=== PATIENT | female | born 1990 | race Caucasian/White ===

== ENCOUNTER 2025-03-10 15:57 | Emergency (ER) | payer SELFPAY ==
[2025-03-10 16:52] LABS: Influenza A Ag Negative; Influenza B Ag Negative; SARS-CoV-2 Antigen Rapid Res Negative (Negative)
[2025-03-10] MEDS ORDERED: IPRATROPIUM BROM 0.5MG/2.5ML ONE (17:50)
[2025-03-10] MEDS ORDERED: ALBUTEROL 2.5 MG/3 ML NEB SOL ONE (17:50)
[2025-03-10] MEDS ORDERED: dexAMETHasone 10 MG/ML VIAL ONE (17:51)
--- NOTE | 2025-03-10 17:57 | RAD REPORT ---
EXAMINATION: ONE VIEW CHEST XR CLINICAL INDICATION: Female, 35 years old.,Cough;Congestion TECHNIQUE: Frontal chest projection is submitted. Examination is limited by patient positioning and t echnique. COMPARISON: No prior exam. FINDINGS: The lungs are well inflated and clear. No pneumothorax or sizable effusion. The heart is normal in s ize. Mediastinal contours are unremarkable. IMPRESSION: No acute intrathoracic abnormalities.
--- NOTE | 2025-03-10 18:37 | EDPHYS ---
Physician Documentation [facility] Name: Kassy Gonzalez Age: 35 yrs Sex: Female : 1990 Arrival Date: 03/10/2025 Time: 15:57 Bed 23 Private MD: ED Physician Jcarlos Kohler HPI: 03/10 16:11 This 35 yrs old Female presents to ER via Unassigned with complaints of Chest Pain, kb Painful Cough. 16:11 Pt is a 35 year old female who presents for cough for 2 weeks; fever, nasal congestion kb and ears feel clogged for 2 days. Throat feels raw from coughing. Reports nausea, denies vomiting and diarrhea. . Historical: - Allergies: 16:25 tramadol; iw 16:25 Toradol; iw 16:25 Latex, Natural Rubber; iw - PSHx: 16:25 hysterectomy; right wrist/elbow; iw - Immunization history:: Adult Immunizations up to date. - Infectious Disease History:: Denies. - Social history:: Smoking status: Patient denies any tobacco usage or history of. ROS: 16:11 Constitutional: As per HPI kb Exam: 16:11 Constitutional: This is a well developed, well nourished patient who is awake, alert, kb and in no acute distress. Head/Face: Normocephalic, atraumatic. ENT: Moist Mucous membranes Cardiovascular: Regular rate Respiratory: Respirations even and unlabored. No increased work of breathing. Talking in full sentences Abdomen/GI: Soft, non-tender. No distention Skin: Warm, dry with normal turgor. Normal color. MS/ Extremity: Pulses equal, no cyanosis. Neurovascular intact. Full, normal range of motion. Neuro: Awake and alert, GCS 15, oriented to person, place, time, and situation. Vital Signs: 16:24 BP 112 / 80; Pulse 105; Resp 18; Temp 97.1; Pulse Ox 96% on R/A; Weight 79.38 kg; iw Height 5 ft. 1 in. ; 16:24 Body Mass Index 33.07 (79.38 kg, 154.94 cm) iw MDM: 16:03 Medical Screening Exam initiated kb 16:12 Data reviewed: vital signs, nurses notes. kb 18:36 Differential diagnosis: covid, flu, pneumonia, bronchitis. Counseling: I had a detailed kb discussion with the patient and/or guardian regarding the historical points, exam findings, and any diagnostic results supporting the discharge/admit diagnosis, lab results, radiology results, the need for outpatient follow up, a family practitioner, to return to the emergency department if symptoms worsen or persist or if there are any questions or concerns that arise at home. 18:38 ED course: Symptoms started to improve and then got worse. Will prescribe antibiotics. kb 03/10 16:12 Order name: COVID-19 Ag + Flu A+B Ag; Complete Time: 16:55 kb 03/10 16:12 Order name: Group A Streptococcus Rapid; Complete Time: 16:41 kb 03/10 16:43 Order name: Throat Culture EDMS 03/10 16:12 Order name: Chest Single View XRAY; Complete Time: 17:59 kb Administered Medications: 17:55 Drug: Albuterol Inhalation 2.5 mg Inhalation once Route: Inhalation; iw 17:55 Drug: Ipratropium Inhalation Aerosol 0.5 mg Inhalation once Route: Inhalation; iw 17:55 Drug: Dexamethasone IM 10 mg IM once Route: IM; Site: right deltoid; iw Disposition: 21:48 I was immediately available on-site in the Emergency Department for consultation in the ms3 care of the patient. Disposition Summary: 03/10/25 18:37 Discharge Ordered Notes: Location: Home kb Condition: Stable kb Diagnosis - Cough kb - Fever, unspecified kb Followup: kb - With: Emergency Department - When: As needed - Reason: Worsening of condition Followup: kb - With: Private Physician - When: 2 - 3 days - Reason: Recheck today's complaints, Continuance of care, Re-evaluation by your physician Discharge Instructions: - Discharge Summary Sheet kb - Acute Bronchitis, Adult, [id number] kb Forms: - Work release form kb - Medication Reconciliation Form kb - Antibiotic Education kb - Prescription Opioid Use kb - Patient Portal Instructions kb - Leadership Thank You Letter kb Prescriptions: - Augmentin 875-125 mg Oral Tablet - take 1 tablet ORAL route every 12 hours for 10 days; 20 tablet; Refills: 0, kb Product Selection Permitted - Prednisone 20 mg Oral Tablet - take 1 tablet ORAL route once daily for 5 days; 5 tablet; Refills: 0, Product kb Selection Permitted - Albuterol Sulfate 2.5 mg /3 mL (0.083 %) Inhalation Solution for Nebulization - inhale 1 unit NEBULIZATION route every 4-6 hours As needed; 1 Unspecified; kb Refills: 0, Product Selection Permitted Signatures: Dispatcher [employer] Eulalia Ang FNP-C FNP-Ckb Williams, Irene, RN RN iw Tom Sauer RN RN ll1 Jcarlos Kohler DO DO ms3
--- NOTE | 2025-03-10 18:37 | ER ---
Nurse's Notes [facility] Name: Kassy Gonzalez Age: 35 yrs Sex: Female : 1990 Arrival Date: 03/10/2025 Time: 15:57 Bed 23 Private MD: Diagnosis: Cough;Fever, unspecified Presentation: 03/10 16:21 Acuity: FELICITA 4 iw 16:24 Chief complaint: Patient states: cough X 2 weeks, fever X 2 days, sore throat, nasal iw congestion, ears feel clogged. Coronavirus screen: Client presents with at least one sign or symptom that may indicate coronavirus-19. Ebola Screen: No symptoms or risks identified at this time. Initial Sepsis Screen: Does the patient meet any 2 criteria? No. Patient's initial sepsis screen is negative. Does the patient have a suspected source of infection? No. Patient's initial sepsis screen is negative. Risk Assessment: Do you want to hurt yourself or someone else? Patient reports no desire to harm self or others. 16:24 Method Of Arrival: Ambulatory iw Historical: - Allergies: 16:25 tramadol; iw 16:25 Toradol; iw 16:25 Latex, Natural Rubber; iw - PSHx: 16:25 hysterectomy; right wrist/elbow; iw - Immunization history:: Adult Immunizations up to date. - Infectious Disease History:: Denies. - Social history:: Smoking status: Patient denies any tobacco usage or history of. Screenin:57 [facility] ED Fall Risk Assessment (Adult) History of falling in the last 3 months, iw including since admission No falls in past 3 months (0 pts) Confusion or Disorientation No (0 pts) Intoxicated or Sedated No (0 pts) Impaired Gait No (0 pts) Mobility Assist Device Used No (0 pt) Altered Elimination No (0 pt) Score/Fall Risk Level 0 - 2 = Low Risk Oriented to surroundings, Maintained a safe environment. Abuse screen: Denies threats or abuse. Nutritional screening: No deficits noted. Tuberculosis screening: No symptoms or risk factors identified. Assessment: 17:56 Reassessment: Patient appears in no apparent distress at this time. Patient and/or iw family updated on plan of care and expected duration. Pain level reassessed. Patient is alert, oriented x 3, equal unlabored respirations, skin warm/dry/pink. Vital Signs: 16:24 BP 112 / 80; Pulse 105; Resp 18; Temp 97.1; Pulse Ox 96% on R/A; Weight 79.38 kg; iw Height 5 ft. 1 in. ; 16:24 Body Mass Index 33.07 (79.38 kg, 154.94 cm) ED Course: 15:59 Patient arrived in ED. al6 16:03 [facility] London[facility] kb 16:03 Jcarlos Kohler DO is Attending Physician. kb 16:21 Triage completed. iw 16:26 Arm band placed on. iw 16:27 COVID-19 Ag + Flu A+B Ag Sent. iw 16:27 Group A Streptococcus Rapid Sent. iw 17:23 Chest Single View XRAY In Process Unspecified. EDMS 17:49 Davina Krishna, RN is Primary Nurse. iw 19:03 No provider procedures requiring assistance completed. Patient did not have IV access jl7 during this emergency room visit. Patient maintains SpO2 saturation greater than 95% on room air. Administered Medications: 17:55 Drug: Albuterol Inhalation 2.5 mg Inhalation once Route: Inhalation; iw 17:55 Drug: Ipratropium Inhalation Aerosol 0.5 mg Inhalation once Route: Inhalation; iw 17:55 Drug: Dexamethasone IM 10 mg IM once Route: IM; Site: right deltoid; iw Outcome: 18:37 Discharge ordered by . kb 19:03 Discharged to home ambulatory, jl7 19:03 Condition: stable 19:03 Discharge instructions given to patient, Instructed on discharge instructions, follow up and referral plans. medication usage, Demonstrated understanding of instructions, follow-up care, medications, Prescriptions given X 3, 19:03 Patient left the ED. jl7 Signatures: Dispatcher [employer] EDCA Eulalia Londono FNP-C FNP-Ckb Williams, Irene RN RN iw Jaron Zhou RN RN jl7 Kimmie Escobar al6
[2025-03-10 19:08] VITALS: BP 112/80; TEMP 97.1; O2SAT 96
== END 2025-03-10 19:03 | disposition home or self-care (01) ==
LOC: ER 15:57
DX: R05.9 Cough, unspecified (principal); R50.9 Fever, unspecified; Z11.52 Encounter for screening for COVID-19
CPT/HCPCS: 36415; 71045; 87070; 87428; J1100; J7613; J7644

== ENCOUNTER 2025-07-14 04:16 | Emergency (ER) | payer OTHER ==
--- OUTSIDE RECORDS SUMMARY | 2025-07-14 04:20 | XMS REPORT | Continuity of Care Document ---
Author Name Unknown Address [address] [facility] [place] [address] [facility] [place] Address [address] [facility] [address] [place] [address] Care Team Providers Care Telegraphic Typewriter Installer Name Role Phone Pcp, Patient Does Not Have A Primary Care Physic murphy Bozena Garrett DO Attending Clinician Payers Payer Name Policy Type Policy Number Effective Date Expirati on Date Source Allergies, Adverse Reactions, Alerts Allergy Name Allergy Type Status Severity Reaction(s) Onset Date Inactive Date Treating Clinician Comments Source WHEAT DRUG INGREDI Active High Unknown-Cmnt 05-25 00:00: 00 [facility] Wheat Propensi ty to adverse reaction s Active Unknown - See comments 05-25 00:00: 00 [facility] NO KNOWN ALLERGIE S Drug Class Active [facility] Social History Social Habit Start Date Stop Date Quantity Comments Source [facility] Sex assigned at 1990 00:00:00 1990 00:00:00 [facility] Smoking Status Start Date Stop Date Source Tobacco smoking consumption unknown [facility] Medications Ordered Medication Name Filled Medication Name Start Date Stop Date Current Medication? Ordering Clinician Indication Dosage Frequency Signature (SIG) Comments Components Source ondansetron (ZOFRAN-ODT ) disintegrat ing tablet 4 mg 05-26 02:45: 00 05-26 01:48 :00 No 4mg 4 mg, Oral, ONCE, 1 dose, On Sat05/25/25 at 2145, Routine [facility] hyoscyamine sulfate (LEVSIN/SL) sublingual tablet 0.125 mg 05-26 02:30: 00 05-26 01:48 :00 No .125mg 0.125 mg, Sublingual , ONCE, 1 dose, On Sat05/25/25 at 2130, Routine [facility] dicyclomine (BENTYL) tablet 20 mg 05-26 01:45: 00 05-26 01:48 :00 No 20mg 20 mg, Oral, ONCE, 1 dose, On Sat05/25/25 at 2045, HERACLIO [facility] ondansetron 4 mg disintegrat ing tablet 05-25 00:00: 00 Yes [id number] 4mg Take 1 tablet by mouth every 8 hours as needed for Nausea and Vomiting (N/V). [facility] dicyclomine 20 mg tablet 05-25 00:00: 00 Yes [id number] 20mg Take 1 tablet by mouth every 6 hours as needed for Abdominal pain. [facility] sertraline 100 mg tablet 04-26 00:00: 00 Yes 1mg Dylan Garcia trazodone 150 mg tablet 04-26 00:00: 00 Yes 1mg Dylan Garcia hydroxyzine HCl 10 mg tablet 04-26 00:00: 00 Yes 1mg Dylan Garcia prazosin 1 mg capsule 04-26 00:00: 00 Yes 1mg Dylan Garcia Vital Signs Vital Name Observation Time Observation Value Comments S ource Heart rate 2025-05-26 03:29:00 95 /min [facility] Body temperature 2025-05-26 03:29:00 37.06 Karen [facility] Respiratory rate 2025-05-26 03:29:00 12 /min [facility] Oxygen saturation in Arterial blood by Pulse oximetry 2025-05-26 03:29:00 97 /min [facility] Systolic blood pressure 2025-05-26 03:00:00 120 mm[Hg] [facility] Diastolic blood pressure 2025-05-26 03:00:00 86 mm[Hg] [facility] Body height 2025-05-26 01:33:00 157.5 cm [facility] Body weight 2025-05-26 01:33:00 92.534 kg [facility] BMI 2025-05-26 01:33:00 37.31 kg/m2 [facility] Height Measured 2025-04-29 14:03:00 62.60 inches Dylan F Jose Body Temperature 2025-04-29 14:03:00 97.80 degrees Dylan F Jose Heart Rate 2025-04-29 14:03:00 85.00 /min Audrey en F Jose Respiratory Rate 2025-04-29 14:03:00 Dylan F Jose BP Systolic 2025-04-29 14:03:00 108 mm[Hg] Step hen F Jose BP Diastolic 2025-04-29 14:03:00 76 mm[Hg] Oral phen F Jose Weight Measured 2025-04-29 14:03:00 201.60 pounds Dylan F Jose BP Systolic 2025-04-27 10:25:00 106 mm[Hg] Step hen F Jose BP Diastolic 2025-04-27 10:25:00 73 mm[Hg] Oral phen F Jose Weight Measured 2025-04-27 10:25:00 204.40 pounds Dylan F Jose Height Measured 2025-04-27 10:25:00 62.60 inches Dylan F Jose Body Temperature 2025-04-27 10:25:00 97.80 degrees Dylan F Jose Heart Rate 2025-04-27 10:25:00 81.00 /min Audrey en F Jose Respiratory Rate 2025-04-27 10:25:00 Dylan F Jose BP Systolic 2025-04-26 10:43:00 126 mm[Hg] Step hen F Jose BP Diastolic 2025-04-26 10:43:00 58 mm[Hg] Oral phen F Jose Weight Measured 2025-04-26 10:43:00 204.60 pounds Dylan F Jose Height Measured 2025-04-26 10:43:00 62.60 inches Dylan F Jose Body Temperature 2025-04-26 10:43:00 97.50 degrees Dylan F Jose Heart Rate 2025-04-26 10:43:00 59.00 /min Audrey Garcia Respiratory Rate 2025-04-26 10:43:00 Dylan Garcia Encounters Start Date/Time End Date/Time Encounter Type Admission Type Attending [facility] Facility Care Department Encounter ID Source 2025-05-25 20:38:00 2025-05-25 22:45:00 Emergency X Bozena Garrett [facility] [id number] [facility] 2025-05-24 09:10:22 2025-05-24 09:10:22 Outpatient [facility] [id number] Dylan Garcia 2025-04-29 13:49:28 2025-04-29 13:49:28 Outpatient [facility] [id number] Dylan Garcia 2025-04-29 00:00:00 2025-04-29 00:00:00 Outpatient Visit [facility] [id number] Dylan Garcia 2025-04-27 10:24:54 2025-04-27 10:24:54 Outpatient [facility] [id number] Dylan Garcia 2025-04-26 11:45:57 2025-04-26 11:45:57 Outpatient [facility] [id number] Dylan Garcia 2025-04-20 10:31:31 2025-04-20 10:31:31 Outpatient [facility] [id number] Dylan Garcia Results Test Description Test Time Test Comments Results Result Co mments Source Dylan GarciaCOMPREHENSIVE METABOLIC [id number] 00:00:00* Test Item Value Reference Range Interpretation Comme nts GLUCOSE (test code = 2345-7) 90 mg/dL UREA NITROGEN (BUN) (test code = 3094-0) 11 mg/dL CREATININE (test code = 2160-0) 0.61 mg/dL EGFR (test code = 32579-7) 119 mL/min/1.73m2 BUN/CREATININE RATIO (test code = 3097-3) SEE NOTE: (calc) SODIUM (test code = 2951-2) 140 mmol/L POTASSIUM (test code = 2823-3) 5.0 mmol/L CHLORIDE (test code = 2075-0) 101 mmol/L CARBON DIOXIDE (test code = 2027-9) 24 mmol/L CALCIUM (test code = 71009-1) 9.6 mg/dL PROTEIN, TOTAL (test code = 2885-2) 7.6 g/dL ALBUMIN (test code = 1751-7) 4.5 g/dL GLOBULIN (test code = 16567-3) 3.1 g/dL(calc) ALBUMIN/GLOBULIN RATIO (test code = 1759-0) 1.5 (calc) BILIRUBIN, TOTAL (test code = 1975-2) 0.4 mg/dL ALKALINE PHOSPHATASE (test code = 6768-6) 98 U/L AST (test code = 1920-8) 19 U/L ALT (test code = 1742-6) 16 U/L Dylan GarciaHEMOGLOBIN [id number] 00:00:00* Test Item Value Reference Range Interpretation Comme [facility] HEMOGLOBIN A1c (test code = 4548-4) 5.6 % Dylan Noonan JoseLIPID [id number] 00:00:00* Test Item Value Reference Range Interpretation Comme nts CHOLESTEROL, TOTAL (test cod e = 2093-3) 193 mg/dL HDL CHOLESTEROL (test code = 2085-9) 35 mg/dL TRIGLYCERIDES (test code = 2571-8) 239 mg/dL LDL-CHOLESTEROL (test code = 33986-2) 122 mg/dL(calc) CHOL/HDLC RATIO (test code = 9830-1) 5.5 (calc) NON HDL CHOLESTEROL (test code = 84370-6) 158 mg/dL(calc) Dylan Noonan [id number] 00:00:00* Test Item Value Reference Range Interpretation Comme nts TSH (test code = 3016-3) 1.55 mIU/L Dylan Saran Jose Notes Date/Time Note Provider Source 2025-05-25 22:30:41 Pt given printed and verbal discharge instructions regarding generalized abdominal pain. Prescriptions provided x2 Pt verbalized understanding of instructions, pt awake alert oriented, resp reg unlabored, skin w/d, color appropriate for race, moves all ext well,pt encouraged to follow up with pcp. Advised to seek medical attention for new/prolonged/worsening of symptoms. No adverse reaction to meds given in ER noted upon discharge Awake, alert oriented, resp reg unlabored, skin w/d, pt leaving amb with steady gait, in no apparent distress, Alyssa Aguilar RN [facility] 2025-05-25 20:34:47 PT to triage with CC of abd pain/ swelling SP ingesting wheat by accident. Abdomen noticeably distended with mild redness noted to abd. PT states this normally happen when she ingests wheat. No home RX [employer]. Airway clear with no reports of difficulty breathing. Dr. Garrett notified and PT seen in triage. [facility] 2025-05-25 20:21:[address] [facility] Emergency Department Note Patient Name: Kassy Epstein Date of : 1990 35 year old female Treatment Room: OR5 Primary Care Physician: No primary care provider on file. Patient Escorted by: Friend [6] Mode of Arrival: Personal means [1] EMS Treatment Prior to ED Arrival: [employer] treatment: None Travel and Exposure Screening: Symptoms Does patient have any of these symptoms?: (not recorded) Exposure Screening Has patient had contact with someone with a communicable disease in the last month?: (not recorded) Diseases exposed to:: (not recorded) Is Patient ?: (not recorded) Exposure Date: (not recorded) Chief Complaint: Chief Complaint Patient presents with Allergic reaction History of Present Illness: History of Present Illness The patient presents for evaluation for abdominal discomfort as well as diarrhea that occurred after she accidentally consumed gluten. She does have a history of celiac disease and is supposed to have a gluten-free diet. [facility] is [facility] and reports somebody cooked food today without realizing there was wheat in the food. No shortness of breath. No throat swelling or tightness. No medications taken prior to arrival. She complains of abdominal swelling and cramping as well as diarrhea. Here for evaluation. Past Medical History/Immunizations: History reviewed. No pertinent past medical history. Tetanus received in last 5 years: Unknown Allergies: Allergies Allergen Reactions Wheat Unknown - See comments Past Social History: Substance & Sexual Activity No substance use or sexual activity history on file. Past Surgical History: History reviewed. No pertinent surgical history. Review of Systems: Review of Systems Constitutional: Negative for chills and fever. Respiratory: Negative for cough and shortness of breath. Cardiovascular: Negative for chest pain. Gastrointestinal: Positive for abdominal distention, abdominal pain and diarrhea. Negative for nausea and vomiting. Genitourinary: Negative for dysuria. Musculoskeletal: Negative for arthralgias, neck pain and neck stiffness. Skin: Negative for wound. Neurological: Negative for dizziness. Psychiatric/Behavioral: Negative for agitation. Endocrine: Negative for goiter. Physical Exam: Physical Exam ED Triage Vitals Weight 05/25/252032 92.5 kg (204 lb) Actual or estimated -- Height 05/25/252032 1.575 m (5' 2") BP 05/25/252032 (!) 148/110 Pulse 05/25/252032 116 Resp 05/25/252032 18 Temp 05/25/252032 37.1 ?C (98.8 ?F) Temp src -- SpO2 05/25/25 2100 98 % Measured on -- Physical Exam Vitals and nursing note reviewed. Constitutional: Appearance: Normal appearance. She is obese. HENT: Head: Normocephalic and atraumatic. Mouth/Throat: Mouth: Mucous membranes are moist. Pharynx: Oropharynx is clear. No oropharyngeal exudate or posterior oropharyngeal erythema. Comments: Airway is patent. There is no swelling or erythema of her posterior pharynx. She is able to control her secretions without difficulty and is speaking in full and complete sentences without difficulty. Cardiovascular: Rate and Rhythm: Normal rate. Pulses: Normal pulses. Pulmonary: Effort: Pulmonary effort is normal. No respiratory distress. Breath sounds: No stridor. No wheezing or rhonchi. Abdominal: General: There is no distension. Palpations: Abdomen is soft. There is no mass. Tenderness: There is no abdominal tenderness. There is no guarding or rebound. Hernia: No hernia is present. Musculoskeletal: General: Normal range of motion. Cervical back: Normal range of motion and neck supple. Skin: General: Skin is warm. Neurological: Mental Status: She is alert. Radiology: No orders to display Lab Results: Lab Results - No data to display EKG: If EKG completed, see Procedure Note. Orders and Treatments: No orders of the defined types were placed in this encounter. Orders Placed This Encounter Medications hyoscyamine sulfate (LEVSIN/SL) sublingual tablet 0.125 mg dicyclomine (BENTYL) tablet 20 mg ondansetron (ZOFRAN-ODT) disintegrating tablet 4 mg ondansetron 4 mg disintegrating tablet dicyclomine 20 mg tablet First Provider Eval: ED Events Date/Time Event User Comments 05/25/252023 Medical Screening Begins BOZENA GARRETT DO -- 05/25/252023 First Provider Evaluation BOZENA GARRETT DO -- ED COURSE Diagnosis/Impression as of 05/25/25 2223 Generalized abdominal pain Results Procedures: Procedures MDM: Assessment & Plan Medical Decision Making The patient presents for evaluation for abdominal discomfort as well as diarrhea that occurred after she accidentally consumed gluten. She does have a history of celiac disease and is supposed to have a gluten-free diet. She is currently staying at [facility] and reports somebody cooked food today without realizing there was wheat in the food. No shortness of breath. No throat swelling or tightness. No medications taken prior to arrival. She complains of abdominal swelling and cramping as well as diarrhea. Vital signs are stable in the ER. The patient is overweight. Her oropharynx and is a clear bilaterally. Her abdomen is soft and nontender on examination. Will give the patient medication to make her more comfortable. Anticipate discharge home later. 2222 - The patient is doing well here in the ER. Her abdominal discomfort has resolved with the medications given today. She remained stable here in the ER and is okay for discharge home with PCP follow-up in 1 week. Problems Addressed: Generalized abdominal pain: acute illness or injury Risk OTC drugs. Prescription drug management. Flowsheet Documentation: Scoring Tools: No data recorded Disposition/Condition: ED Disposition ED Disposition Discharge Condition Stable Comment -- Discharge Medications: Patient's Medications START taking these medications DICYCLOMINE 20 MG TABLET Take 1 tablet by mouth every 6 hours as needed for Abdominal pain. ONDANSETRON 4 MG DISINTEGRATING TABLET Take 1 tablet by mouth every 8 hours as needed for Nausea and Vomiting (N/V). CONTINUE taking these medications which have NOT CHANGED No medications on file START taking Modified Medications as Prescribed No medications on file STOP taking these medications No medications on file Follow-up: Electronically signed by: Bozena Garrett DO 05/25/[address] [facility]
[2025-07-14] MEDS ORDERED: AZITHROMYCIN 250 MG TAB ONE (04:49)
[2025-07-14] MEDS ORDERED: ACETAMINOPHEN 500 MG TAB ONE (04:49)
[2025-07-14] MEDS ORDERED: GUAIFENESIN/DM 5 ML UCUP ONE ×3 (04:50→06:03)
[2025-07-14] MEDS ORDERED: IBUPROFEN 400 MG TAB ONE (04:50)
[2025-07-14 05:42] LABS: SARS-CoV-2 Antigen Rapid Res Negative (Negative)
[2025-07-14] MEDS ORDERED: BENZONATATE 100 MG CAP PO ONE ×2 (05:54→06:02)
--- NOTE | 2025-07-14 06:40 | ER ---
Nurse's Notes [facility] Name: Kassy Gonzalez Age: 35 yrs Sex: Female : 1990 Arrival Date: 07/14/2025 Time: 04:16 Bed 15 Private MD: Diagnosis: Acute pharyngitis, acute laryngitis, acute upper respiratory infection Presentation: 07/14 04:21 Chief complaint: Patient states: SORE THROAT, DIFFICULTY SWALLOWING, CHEST PAIN WHEN ha1 SWALLOWING, AND FEELING ACHY. 04:21 Coronavirus screen: Client denies travel out of the [place] in the last 14 days. Ebola ha1 Screen: No symptoms or risks identified at this time. Initial Sepsis Screen: Does the patient meet any 2 criteria? No. Patient's initial sepsis screen is negative. Does the patient have a suspected source of infection? No. Patient's initial sepsis screen is negative. Risk Assessment: Do you want to hurt yourself or someone else?. Onset of symptoms was July 14, 2025. 04:21 Method Of Arrival: Ambulatory ha1 04:21 Acuity: FELICITA 4 ha1 Triage Assessment: 04:21 General: Appears uncomfortable, Behavior is cooperative. Pain: Complains of pain in ha1 SORE THROAT. Neuro: Level of Consciousness is awake, alert, obeys commands, Oriented to person, place, time, situation, Appropriate for age. Cardiovascular: Capillary refill < 3 seconds Patient's skin is warm and dry. Respiratory: Airway is patent Respiratory effort is even, unlabored, Respiratory pattern is regular, symmetrical. Derm: Skin is pink, warm \T\ dry. 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 - Infectious Disease History:: Denies. - Family history:: not pertinent. - Social history:: Smoking status: Patient denies any tobacco usage or history of. Screenin:59 [facility] ED Fall Risk Assessment (Adult) History of falling in the last 3 months, ss12 including since admission No falls in past 3 months (0 pts) Confusion or Disorientation No (0 pts) Intoxicated or Sedated No (0 pts) Impaired Gait No (0 pts) Mobility Assist Device Used No (0 pt) Altered Elimination No (0 pt) Score/Fall Risk Level 0 - 2 = Low Risk Oriented to surroundings, Maintained a safe environment, Educated pt \T\ family on fall prevention, incl call for assistance when getting out of bed, Assessed \T\ reinforced patient's understanding of fall precautions. Abuse screen: Denies threats or abuse. Denies injuries from another. Nutritional screening: No deficits noted. Tuberculosis screening: No symptoms or risk factors identified. Assessment: 04:26 General: Appears uncomfortable, Behavior is cooperative, anxious. Pain: Complains of ss12 pain in throat and chest Pain does not radiate. Pain currently is 7 out of 10 on a pain scale. Quality of pain is described as aching. Neuro: No deficits noted. Level of Consciousness is awake, alert, obeys commands, Oriented to person, place, time, situation. Cardiovascular: No deficits noted. Patient's skin is warm and dry. Respiratory: No deficits noted. Airway is patent Respiratory effort is even, unlabored, Respiratory pattern is regular, symmetrical. GI: No deficits noted. No signs and/or symptoms were reported involving the gastrointestinal system. : No deficits noted. No signs and/or symptoms were reported regarding the genitourinary system. EENT: no obvious redness noted in the mouth. pt has hoarse voice . Reports soar throat. EENT: Throat no obvious redness noted. Derm: No deficits noted. Skin is intact, Skin is dry, Skin is pink, warm \T\ dry. normal. Musculoskeletal: No deficits noted. No signs and/or symptoms reported regarding the musculoskeletal system. 05:57 Reassessment: Patient appears in no apparent distress at this time. Patient and/or ss12 family updated on plan of care and expected duration. Pain level reassessed. Patient is alert, oriented x 3, equal unlabored respirations, skin warm/dry/pink. 05:59 Respiratory: Breath sounds are clear bilaterally. ss12 06:28 Reassessment: Patient appears in no apparent distress at this time. Patient and/or ss12 family updated on plan of care and expected duration. Pain level reassessed. Patient is alert, oriented x 3, equal unlabored respirations, skin warm/dry/pink. Vital Signs: 04:21 BP 121 / 98; Pulse 92; Resp 16 S; Temp 98.2(O); Pulse Ox 97% on R/A; Weight 76.2 kg; ha1 Height 5 ft. 1 in. ; Pain 8/10; 05:00 BP 118 / 86; Pulse 87; Resp 16 S; Pulse Ox 98% on R/A; ss12 06:00 BP 107 / 78; Pulse 73; Resp 16 S; Pulse Ox 96% on R/A; ss12 04:21 Body Mass Index 31.74 (76.20 kg, 154.94 cm) ha1 04:21 Pain Scale: Adult ha1 Mally Coma Score: 05:00 Eye Response: spontaneous(4). Motor Response: obeys commands(6). Verbal Response: ss12 oriented(5). Total: 15. 06:05 Eye Response: spontaneous(4). Motor Response: obeys commands(6). Verbal Response: sp4 oriented(5). Total: 15. ED Course: 04:20 Patient arrived in ED. [email or web address] 04:32 Finesse Hernandez MD is Attending Physician. sp4 04:33 Kelly Mendoza RN is Primary Nurse. ss12 05:04 Triage completed. ha1 05:59 Arm band placed on right wrist. ss12 05:59 No provider procedures requiring assistance completed. ss12 06:00 Patient has correct armband on for positive identification. Provided Education on: plan ss12 of care. 07:04 Primary Nurse role handed off by Kelly Mendoza RN bp 07:04 Bean Mike, ROBBIN is Primary Nurse. bp 07:07 Patient did not have IV access during this emergency room visit. ss12 Administered Medications: 05:00 Drug: Ibuprofen PO 800 mg PO once Route: PO; al5 06:29 Follow up: Response: No change in condition ss12 05:00 Drug: Acetaminophen PO 1000 mg PO once Route: PO; al5 06:30 Follow up: Response: No adverse reaction; Pain is decreased ss12 05:00 Drug: Dextromethorphan-Guaifenesin PO Liquid 10 mg-100 mg/5 mL 10 ml PO once Route: PO; al5 06:30 Follow up: Response: No adverse reaction ss12 05:00 Drug: AZITHromycin PO 500 mg PO once Route: PO; al5 06:30 Follow up: Response: No adverse reaction ss12 06:15 Drug: Tessalon Perle PO 200 mg PO once Route: PO; ss12 06:30 Follow up: Response: No adverse reaction ss12 06:15 Drug: Dextromethorphan-Guaifenesin PO Liquid 10 mg-100 mg/5 mL 10 ml PO once Route: PO; ss12 06:30 Follow up: Response: No adverse reaction 12 Medication: 05:59 VIS not applicable for this client. 12 Outcome: 06:40 Discharge ordered by . sp4 07:07 Discharged to home ambulatory, 12 07:07 Condition: stable 07:07 Discharge instructions given to patient, family, Instructed on discharge instructions, follow up and referral plans. Demonstrated understanding of instructions, follow-up care, Prescriptions given X 5 07:08 Patient left the ED. 12 Signatures: Bean Mike, RN RN Marielena [id number] Yeni Crowe RN RN ha1 Finesse Hernandez MD MD sp4 Maria D Copeland RN RN al5 Kelly Mendoza RN RN ss12 Corrections: (The following items were deleted from the chart) 05:59 05:57 BP 118 / 86; Pulse 87bpm; Resp 16bpm; Spontaneous; Pulse Ox 98% RA; [address] 05:59 05:57 GCS: 15, ss12 ss12 06:29 06:29 Tessalon Perle PO 200 mg PO ss12 ss12
--- NOTE | 2025-07-14 06:41 | EDPHYS ---
Physician Documentation [facility] Name: Kassy Gonzalez Age: 35 yrs Sex: Female : 1990 Arrival Date: 07/14/2025 Time: 04:16 Bed 15 Private MD: ED Physician Finesse Hernandez HPI: 07/14 04:32 This 35 yrs old Other Race Female presents to ER via Unassigned with complaints of sp4 Difficulty Swallowing, Sore Throat, Fever, Chest Wall Pain. 06:05 Patient presents with acute onset sore throat, pain on swallowing, fever and chest wall sp4 pain.. 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 - Infectious Disease History:: Denies. - Family history:: not pertinent. - Social history:: Smoking status: Patient denies any tobacco usage or history of. ROS: 06:05 Constitutional: Positive fever, difficulty swallowing, sore throat, chest wall pain sp4 06:05 All other systems are negative, Exam: 06:05 Constitutional: This is a well developed, well nourished patient who is awake, alert, sp4 and in no acute distress. Head/Face: Normocephalic, atraumatic. Eyes: Pupils equal round and reactive to light, extra-ocular motions intact. Lids and lashes normal. Conjunctiva and sclera are not injected. Cornea within normal limits. Periorbital areas with no swelling, redness, or edema. ENT: Nares patent. No nasal discharge, no septal abnormalities noted. Tympanic membranes are normal and external auditory canals are clear. Oropharynx with no redness, swelling, or masses, exudates, or evidence of obstruction, uvula midline. Mucous membranes moist. Neck: Trachea midline, no thyromegaly or masses palpated, and no cervical lymphadenopathy. Supple, full range of motion without nuchal rigidity, or vertebral point tenderness. Chest/axilla: Normal chest wall appearance and motion. Nontender with no deformity. No lesions are appreciated. Cardiovascular: Regular rate and rhythm with a normal S1 and S2. No gallops, murmurs, or rubs. No pulse deficits. Respiratory: Lungs have equal breath sounds bilaterally, clear to auscultation and percussion. No rales, rhonchi or wheezes noted. No increased work of breathing, no retractions or nasal flaring. Abdomen/GI: Soft, with normal bowel sounds. No distension or tympany. No guarding or rebound. No evidence of tenderness throughout. Back: No spinal tenderness. No costovertebral tenderness. Skin: Warm, dry with normal turgor. Normal color with no rashes, no lesions, and no evidence of cellulitis. MS/ Extremity: Pulses equal, no cyanosis. Neurovascular intact. Full, normal range of motion. Neuro: Awake and alert, GCS 15, oriented to person, place, time, and situation. Cranial nerves II-XII grossly intact. Motor strength 5/5 in all extremities. Sensory grossly intact. Psych: Awake, alert, with orientation to person, place and time. Behavior, mood, and affect are within normal limits 06:44 ECG was reviewed by the Attending Physician. EKG 0 613 normal sinus rhythm rate 85 sp4 Vital Signs: 04:21 BP 121 / 98; Pulse 92; Resp 16 S; Temp 98.2(O); Pulse Ox 97% on R/A; Weight 76.2 kg; ha1 Height 5 ft. 1 in. ; Pain 8/10; 05:00 BP 118 / 86; Pulse 87; Resp 16 S; Pulse Ox 98% on R/A; ss12 06:00 BP 107 / 78; Pulse 73; Resp 16 S; Pulse Ox 96% on R/A; ss12 04:21 Body Mass Index 31.74 (76.20 kg, 154.94 cm) ha1 04:21 Pain Scale: Adult ha1 Mally Coma Score: 05:00 Eye Response: spontaneous(4). Motor Response: obeys commands(6). Verbal Response: ss12 oriented(5). Total: 15. 06:05 Eye Response: spontaneous(4). Motor Response: obeys commands(6). Verbal Response: sp4 oriented(5). Total: 15. MDM: 04:39 Medical Screening Exam initiated sp4 06:06 Differential diagnosis: apthous ulcer, bronchitis, gingivostomatitis, group A strep sp4 tonsillitis, influenza, mononucleosis, pharyngitis. Data reviewed: vital signs, nurses notes, lab test result(s), EKG. Consideration of Admission/Observation Escalation of care including admission/observation considered. 08 04:45 Order name: SARS RAPID; Complete Time: 05:47 sp4 07/14 04:45 Order name: Group A Streptococcus Rapid; Complete Time: 05:47 sp4 07/14 05:45 Order name: Throat Culture EDMS EC:13 Rate is 85 beats/min. Rhythm is regular, Normal Sinus Rhythm. QRS [place] is Normal. [place] sp4 interval is normal. QRS interval is normal. QT interval is normal. No Q waves. T waves are Normal. No ST changes noted. Clinical impression: Normal ECG. Interpreted by me. Reviewed by me. Administered Medications: 05:00 Drug: Ibuprofen PO 800 mg PO once Route: PO; al5 06:29 Follow up: Response: No change in condition ss12 05:00 Drug: Acetaminophen PO 1000 mg PO once Route: PO; al5 06:30 Follow up: Response: No adverse reaction; Pain is decreased ss12 05:00 Drug: Dextromethorphan-Guaifenesin PO Liquid 10 mg-100 mg/5 mL 10 ml PO once Route: PO; al5 06:30 Follow up: Response: No adverse reaction ss12 05:00 Drug: AZITHromycin PO 500 mg PO once Route: PO; al5 06:30 Follow up: Response: No adverse reaction ss12 06:15 Drug: Tessalon Perle PO 200 mg PO once Route: PO; ss12 06:30 Follow up: Response: No adverse reaction ss12 06:15 Drug: Dextromethorphan-Guaifenesin PO Liquid 10 mg-100 mg/5 mL 10 ml PO once Route: PO; ss12 06:30 Follow up: Response: No adverse reaction ss12 Disposition Summary: 07/14/25 06:40 Discharge Ordered Notes: Location: Home sp4 Problem: new sp4 Symptoms: have improved sp4 Condition: Stable sp4 Diagnosis - Acute pharyngitis, acute laryngitis, acute upper respiratory infection sp4 Followup: sp4 - With: Private Physician - When: As needed - Reason: Recheck today's complaints Discharge Instructions: - Discharge Summary Sheet sp4 - Laryngitis, Gyzo-vr-Ulan sp4 Forms: - Work release form sp4 - Patient Portal Instructions sp4 Prescriptions: - dextromethorphan-guaifenesin 20-400 mg Oral tablet - take 1 tablet ORAL route 4 times per day as needed for cough; 60 tablet; sp4 Refills: 0, Product Selection Permitted - Ibuprofen 800 mg Oral Tablet - take 1 tablet ORAL route every 8 hours As needed take with food; 30 tablet; sp4 Refills: 0, Product Selection Permitted - Zithromax Z-Heladio 250 mg Oral Tablet - take 1 tablet ORAL route as directed for 5 days Day 1 - take two (2) tablets sp4 one time. Day 2, 3, 4 , 5 take one (1) tablet once daily.; 6 tablet; Refills: 0, Product Selection Permitted - benzonatate 200 mg Oral capsule - take 1 capsule ORAL route 3 times per day as needed; 30 capsule; Refills: 0, sp4 Product Selection Permitted - ondansetron 8 mg Oral Tablet,disintegrating - take 1 tablet ORAL route every 8 hours PRN nausea; 30 tablet; Refills: 0, sp4 Product Selection Permitted Signatures: Dispatcher [employer] Finesse Steven MD MD sp4 Maria D Copeland, RN RN al5 Kelly Mendoza RN RN ss12
[2025-07-14 07:13] VITALS: TEMP 98.2
[2025-07-14 07:16] VITALS: BP 107/78; O2SAT 96
== END 2025-07-14 07:08 | disposition home or self-care (01) ==
LOC: ER 04:16
DX: J06.9 Acute upper respiratory infection, unspecified (principal); J04.0 Acute laryngitis; Z11.52 Encounter for screening for COVID-19
CPT/HCPCS: 36415; 87070; 87426; 93005; 99283